=== PATIENT | female | born 1965 | race African-American/Black ===

== ENCOUNTER 2018-03-01 02:16 | Emergency (ER) | payer MEDICAID ==
[~2018-03-01] VITALS: Ht 170.2 cm; Wt 59.0 kg
[2018-03-01] MEDS ORDERED: UNOBMED (02:35)
[2018-03-01 02:40] VITALS: BP 137/88
[2018-03-01] MEDS ORDERED: Ketorolac 30mg Inj IV ONE ×2 (03:00→03:30)
--- NOTE | 2018-03-01 03:07 | Emergency Room Report ---
History of Present Illness General Chief Complaint: Abdominal Pain Source: Patient Present Illness HPI Is a 52-year-old female who is legally blind also has history of HIV. She presents with chief complaint of abdominal pain. His been on and off for over a month. She been to [facility] twice. Ultrasound initially show some spots on her ovaries. She went back a month later and it was in there. Pain came on tonight. Hard time sleeping. Pain is sharp in nature. 10 out of 10. Worse with movement. The fever chills but no dysuria frequency. Nothing made it better. Allergies: Coded Allergies: No Known Allergies (Unverified , 03/01/18) Patient History Past Medical History: see triage record, old chart reviewed, HIV Past Surgical History: other Pertinent Family History: none Social History: Denies: smoking Last Menstrual Period: 02/13/2018 Now: No Immunizations: other Reviewed Nursing Documentation: PMH: Agreed; PSxH: Agreed Nursing Documentation-PMH Past Medical History: No History, Except For Review of Systems Eye: Denies: eye pain, blurred vision ENT: Denies: ear pain, nose congestion, throat swelling Respiratory: Denies: cough, shortness of breath Cardiovascular: Denies: chest pain, palpitations Gastrointestinal: Reports: abdominal pain; Denies: diarrhea, nausea, vomiting Musculoskeletal: Denies: back pain, joint pain Skin: Denies: rash Neurological: Denies: headache, numbness Endocrine: Denies: increased thirst, increased urine Hematologic/Lymphatic: Denies: easy bruising All Other Systems: negative except mentioned in HPI Physical Exam Vital Signs Date Time Temp Pulse Resp B/P (MAP) Pulse Ox O2 Delivery O2 Flow Rate FiO2 03/01/18 02:31 99.0 90 19 137/88 100 Room Air 99.0 vitals normal Sp02 EP Interpretation: reviewed, normal General Appearance: well appearing, no apparent distress, alert Head: normocephalic, atraumatic Eyes: bilateral eye EOMI ENT: hearing grossly normal, normal pharynx Neck: full range of motion, supple, no meningismus Respiratory: chest non-tender, lungs clear, normal breath sounds Cardiovascular #1: regular rate, rhythm, no murmur Gastrointestinal: normal bowel sounds, no mass, no organomegaly, no bruit, non- distended, tenderness - diffuse Musculoskeletal: back normal, gait/station normal, normal range of motion Psychiatric: mood/affect normal Skin: warm/dry Medical Decision Making Diagnostic Impression: Primary Impression: Cocaine abuse Additional Impressions: Abdominal pain Qualified Codes: R10.84 - Generalized abdominal pain UTI (urinary tract infection) Qualified Codes: N30.00 - Acute cystitis without hematuria Methamphetamine abuse ER Course Patient presents with abdominal pain. She sleeping here without any issue. Antibiotic started. No evidence of obstruction. No evidence of acute abdomen. Initially denies any drug use but admitted to history of IV drug use and currently cocaine. Lab Results Impression labs unremarkable CT/MRI/US Diagnostic Results CT/MRI/US Diagnostic Results : Imaging Test Ordered: CT abdomen and pelvis Impression Read by radiologist. Questionable sludge in the gallbladder. No inflammatory changes. Last Vital Signs Date Time Temp Pulse Resp B/P (MAP) Pulse Ox O2 Delivery O2 Flow Rate FiO2 03/01/18 02:31 99.0 90 19 137/88 100 Room Air 99.0 Status: improved Disposition: HOME, SELF-CARE Condition: Stable Scripts Ibuprofen* (MOTRIN*) 600 Mg Tablet 600 MG ORAL THREE TIMES A DAY, #30 TAB 0 Refills Prov: CALIXTO BOLDEN M.D. 03/01/18 Referrals: [facility],REFERR[facility] (PCP) Additional Instructions: Follow-up with your doctor in 7 days. Stop using drugs. Go to rehabilitation. Return if symptom worsen. CALIXTO BOLDEN M.D. Mar 01, 2018 03:07
[2018-03-01 03:20] LABS: BILIRUBIN, URINE NEGATIVE (NEGATIVE); GLUCOSE, URINE (UA) NEGATIVE (NEGATIVE); KETONES,URINE NEGATIVE (NEGATIVE); NITRITE,URINE NEGATIVE (NEGATIVE); PH,URINE 5 (4.5-8.0); PROTEIN,URINE 1+ (NEGATIVE); UROBILINOGEN,URINE 1 MG/DL (0.0-1.0)
[2018-03-01] MEDS ORDERED: Ketorolac 60mg Inj IM ONE (03:30)
[2018-03-01 03:40] LABS: COLOR,URINE YELLOW
[2018-03-01 03:41] LABS: APPEARANCE,URINE CLOUDY; LEUKOCYTE ESTERASE ,URINE 1+ (NEGATIVE)
[2018-03-01 03:56] LABS: BASOPHILS % (AUTO) 2.1 % (0.0-2.0); EOSINOPHILS % (AUTO) 16.5 % (0.0-3.0); HEMATOCRIT 42.3 % (37.0-47.0); HEMOGLOBIN 14.5 G/DL (12.0-16.0); MEAN CORPUSCULAR VOLUME 92 FL (80-99); MONOCYTES % (AUTO) 7.5 % (1.0-10.0); NEUTROPHILS % (AUTO) 34.9 % (45.0-75.0); PLATELET COUNT 219 K/UL (150-450); RED BLOOD COUNT 4.57 M/UL (4.20-5.40); RED CELL DISTRIBUTION WIDTH 11.3 % (11.6-14.8); WHITE BLOOD COUNT 3.8 K/UL (4.8-10.8)
[2018-03-01 04:07] LABS: ANION GAP 11 mmol/L (5-15); BLOOD UREA NITROGEN 12 mg/dL (7-18); CALCIUM 9.2 MG/DL (8.5-10.1); CARBON DIOXIDE 26 MMOL/L (21-32); CHLORIDE 103 MMOL/L (98-107); CREATININE 0.7 MG/DL (0.55-1.30); POTASSIUM 3.6 MMOL/L (3.5-5.1); SODIUM 140 MMOL/L (136-145)
[2018-03-01 04:13] LABS: ALANINE AMINOTRANSFERASE 29 U/L (12-78); ALBUMIN 4.1 G/DL (3.4-5.0); ALBUMIN/GLOBULIN RATIO 1.1 (1.0-2.7); ALKALINE PHOSPHATASE 61 U/L (46-116); ASPARTATE AMINO TRANSFERASE 21 U/L (15-37); BILIRUBIN,TOTAL 0.5 MG/DL (0.2-1.0)
[2018-03-01] MEDS ORDERED: cefTRIAXone 1 GM in NS 55 ML IVPB ONE (04:15)
[2018-03-01 05:00] VITALS: BP 115/85
[2018-03-01] MEDS ORDERED: IBUPROFEN600 MG ORAL (06:05)
[2018-03-01 06:20] VITALS: BP 113/75
--- NOTE | 2018-03-01 08:46 | Diagnostic Imaging Report ---
Indication: Abdominal pain for 3 days Technique: Spiral acquisitions obtained through the abdomen and pelvis. No oral contrast utilized, per emergency room physician request No IV contrast utilized, per emergency room physician request. Multiplanar reconstructions were generated. Total dose length product 607.53 mGycm. CTDIvol(s) 12.33 mGy. Dose reduction achieved using automated exposure control Comparison: None Findings: The appendix is normal. No evidence of diverticulosis or diverticulitis. No small bowel distention. No free or loculated intraperitoneal air or fluid is evident. Distal esophagus, stomach, duodenum are unremarkable. The liver, gallbladder, bile ducts, pancreas, spleen, adrenals are unremarkable. The left kidney demonstrates a punctate 2 mm lower pole calyceal calculus. The kidneys are otherwise unremarkable. No ureteral calculi, hydronephrosis, or hydroureter. The uterus and ovaries are unremarkable. The bladder is unremarkable. The included lung bases demonstrate scattered small bullae bilaterally. There are basilar atelectatic changes and/or scarring. The bones are unremarkable except for mild degenerative spondylosis changes. Impression: No acute abnormality 2 mm nonobstructive left lower pole intrarenal calyceal calculus COPD changes Other findings as noted, including bilateral basilar atelectatic changes and/or scarring, degenerative spondylosis The CT scanner at [facility] is accredited by the [employer] and the scans are performed using protocols designed to limit radiation exposure to as low as reasonably achievable to attain images of sufficient resolution adequate for diagnostic evaluation.
== END 2018-03-01 06:00 | disposition home or self-care (01) ==
LOC: EMR 02:57
DX: N30.00 Acute cystitis without hematuria (principal); R10.84 Generalized abdominal pain; F14.10 Cocaine abuse, uncomplicated
CPT/HCPCS: 36415; 74176; 80053; 80307; 81003; 83690; 85025; 87086; 96374; 96375; 99284; J0696; J1885